=== PATIENT | male | born 1950 | race Caucasian/White ===

== ENCOUNTER 2020-07-12 09:54 | Day surgery (SDC) | payer MEDICARE, MEDICAID ==
[2020-07-05 15:10] LABS: BASOPHILS # (AUTO) 0.1 X10'3 (0-0.2); BASOPHILS % (AUTO) 0.8 % (0-1); EOSINOPHILS # (AUTO) 0.4 X10'3 (0-0.9); EOSINOPHILS % (AUTO) 5.8 % (0-6); LYMPHOCYTES # (AUTO) 2.3 X10'3 (1.1-4.8); LYMPHOCYTES % (AUTO) 33.2 % (21-51); MEAN CORPUSCULAR HGB CONC 33.6 g/dL (33.0-36.5); MEAN CORPUSCULAR VOLUME 89.5 FL (78-98); MEAN PLATELET VOLUME 8.4 FL (7.4-10.4); MONOCYTES # (AUTO) 0.7 X10'3 (0-0.9); MONOCYTES % (AUTO) 10.2 % (2-12); NEUTROPHILS # (AUTO) 3.4 X10'3 (1.8-7.7); PRE OP HEMATOCRIT 46.1 % (42.0-52.0); PRE OP HEMOGLOBIN 15.5 g/dL (14.0-17.9); PRE OP PLATELET COUNT 189 X10'3 (140-440); RED BLOOD COUNT 5.15 X10'6 (4.70-6.10)
[2020-07-05 15:23] LABS: PRE OP PROTIME 10.8 SECONDS (9.0-12.0)
[2020-07-05 15:26] LABS: ALBUMIN 3.7 G/DL (3.4-5.0); ALKALINE PHOSPHATASE 55 IU/L (46-116); BLOOD UREA NITROGEN 15 MG/DL (7-18); CALCIUM 9.5 MG/DL (8.5-10.1); CHLORIDE 105 MMOL/L (99-107); CREATININE 1.15 MG/DL (0.60-1.10); PRE OP ALT 28 U/L (30-65); PRE OP ANION GAP 4 (8-16); PRE OP AST 9 U/L (10-37); PRE OP BILIRUB, TOTAL 0.6 MG/DL (0.0-1.0); PRE OP GLUCOSE 97 MG/DL (70-104); PRE OP POTASSIUM 3.8 MMOL/L (3.4-5.1); PRE OP SODIUM 144 MMOL/L (135-145); TOTAL CARBON DIOXIDE 35.4 MMOL/L (24-32); TOTAL PROTEIN 7.4 G/DL (6.4-8.2); eGFR 63 ML/MIN
[~2020-07-12] VITALS: Ht 188 cm; Wt 133.4 kg
[2020-07-12] VITALS (17 sets, daily range): BP systolic 122–162; BP diastolic 65–85
[~2020-07-12 09:54] MED LIST: ATOR-2 PO; DULO30CA52 PO; FEBU40TA3 PO; FURO40TA4 PO; IRBE1TAB33 PO; LIDOcaine 1% W/epiNEPHrine 1:100,000 20ml vial ONE; METF-438 PO; cefTAZidime 1gm inj ONE; famotidine 20mg tablet PO ONE; methylPREDNISolone acetate 80mg/ml inj**IM only ONE; mupirocin 2% ointment 22GM ONE; oxymetazoline 15 ML nasal spray NS ONE; oxymetazoline 15 ML nasal spray NS PRN; ringers solution, lacted 1,000 ML IV SCH
[2020-07-12] MEDS ORDERED: LIDOcaine 1% (10mg/ml) 2ml vial ONE ×2 (10:44→12:33)
[2020-07-12] MEDS: oxymetazoline 15 ML nasal spray NS PRN ×3 (11:04→13:52)
[2020-07-12] MEDS ORDERED: cocaine 4% topical solution 4ml bottle ONE (12:36)
[2020-07-12] MEDS ORDERED: ondansetron/PF 4mg/2ml inj IV PRN (12:50)
[2020-07-12] MEDS ORDERED: morphine 2 MG/ML inj. syringe IV PRN (12:50)
[2020-07-12] MEDS ORDERED: morphine 4 MG/ML inj SYRINge IV PRN (12:50)
[2020-07-12] MEDS ORDERED: proCHLORperazine 10 MG/2 ml inj IV PRN (12:50)
[2020-07-12] MEDS ORDERED: ringers solution, lacted 1,000 ML IV SCH (12:50)
[2020-07-12] MEDS ORDERED: meperidine/PF 25mg/ml syringe IV PRN ×3 (12:50)
[2020-07-12] MEDS ORDERED: rocuronium 10mg/ml inj IV ONE (12:56)
[2020-07-12] MEDS ORDERED: midazolam 2 mg/2 ml injection ONE (12:56)
[2020-07-12] MEDS ORDERED: fentaNYL/PF 50MCG/1 ML 2ML syringe ONE (12:56)
[2020-07-12] MEDS ORDERED: propofol inj 20 ML IV ONE (12:56)
[2020-07-12] MEDS ORDERED: sevoflurane 250ml liquid IH ONE (13:08)
[2020-07-12] MEDS ORDERED: dexamethasone sod phosphate 4mg/ml inj. ONE (14:25)
[2020-07-12] MEDS ORDERED: ondansetron/PF 4mg/2ml inj ONE (14:25)
[2020-07-12] MEDS ORDERED: neostigmine methylsulfate 1 MG/ML 10ml vial ONE (14:42)
[2020-07-12] MEDS ORDERED: glycopyrrolate 0.2mg/ml inj ONE (14:42)
--- NOTE | 2020-07-12 14:50 | NUR ---
Received from OR via [facility], accompanied by Anesthesiologist DR FERNÁNDEZ and report given by Anesthesiologist. PATIENT WAKING UP, DENIES PAIN, V/S WNL, CSM INTACT, 20G PIV TO LUE, COTTONOID PACKING TO BILATERALLY SINUSES WITH NO ACTIVE DRAINAGE VISIBLE AT THIS TIME
[2020-07-12] MEDS ORDERED: salt irrigation nasal spray 45 ML SPRAY NS SCH (16:51)
[2020-07-12] MEDS ORDERED: mupirocin 2% ointment 22GM TP SCH (16:54)
[2020-07-12] MEDS ORDERED: oxymetazoline 15 ML nasal spray NS PRN (16:55)
--- NOTE | 2020-07-12 17:20 | NUR ---
All dc criteria for discharge home has been met. IV taken out without complications. DISCUSSED HOME CARE FOR NASAL FLUSHING, DRESSING CHANGED FOR NASAL MUSTACHE PRIOR TO D/C - CDI, All questions answered regarding dc paperwork, WAS SENT HOME WITH ALL ORDERS SUPPLIES FOR CARE AT HOME. VSS FOR PT, BUT REMINDED PT TO TAKE BP MEDS ONCE AT HOME TODAY. PT ABLE TO AMBULATE TO THE BATHROOM TO VOID WITHOUT PROBLEM, Taken out WITH ALL BELONGINGS via wheelchair to personal vehicle where patient taken home by family/friend.
== END 2020-07-12 17:20 | disposition home or self-care (01) ==
LOC: PAS 09:54 → EDBD 11:30 → PAS 17:20
PROVIDERS: ATTEND Otolaryngology
DX: J34.2 Deviated nasal septum (principal); J34.3 Hypertrophy of nasal turbinates; J32.8 Other chronic sinusitis; G47.30 Sleep apnea, unspecified; I10 Essential (primary) hypertension; E11.9 Type 2 diabetes mellitus without complications; Z20.822 Contact with and (suspected) exposure to COVID-19; Z79.01 Long term (current) use of anticoagulants; Z79.899 Other long term (current) drug therapy; Z72.89 Other problems related to lifestyle; Z87.891 Personal history of nicotine dependence; Z98.890 Other specified postprocedural states
CPT/HCPCS: 30140; 30520; 31256; 31257; 36415; 61782; 76937; 80053; 82948; 85025; 85576; 85610; 85730; 87426; 87635; 93005; A6402; C9250; J0713; J1040; J1100; J2001; J2175; J2250; J2270; J2405; J2704; J2710; J3010; J7040; J7120; A4618; A7000; J3490